=== PATIENT | male | born 1990 | race African-American/Black ===

== ENCOUNTER 2022-07-27 13:58 | Inpatient (IN) | payer OTHER ==
[~2022-07-27] VITALS: Ht 177.8 cm; Wt 129.3 kg
[2022-07-27] MEDS ORDERED: SODIUM CHLORIDE 0.9% 1000ML 1,000 ML IV ONE ×2 (14:30→16:00)
[2022-07-27 14:36] LABS: BASOPHILS # (AUTO) 0.1 (0.0-0.1); BASOPHILS % 0.8 % (0.0-1.0); EOSINOPHILS # (AUTO) 0.1 (0.0-0.4); HEMATOCRIT 46.3 % (38.2-49.6); HEMOGLOBIN 15.9 g/dL (14.0-18.0); MEAN CORPUSCULAR HEMOGLOBIN 27.2 pg (28-32); MEAN CORPUSCULAR HGB CONC 34.3 g/dL (31-35); MEAN CORPUSCULAR VOLUME 79.3 fL (81-99); MONOCYTES # (AUTO) 0.3 (0.2-0.8); MONOCYTES % 5.4 % (4.4-11.3); NEUTROPHILS # (AUTO) 3.6 (2.1-6.9); NEUTROPHILS % 59.6 % (38.7-80.0); PLATELET COUNT 238 x10e3/uL (140-360); RED BLOOD COUNT 5.84 x10e6/uL (4.3-5.7); RED CELL DISTRIBUTION WIDTH 13.6 % (11.7-14.4)
[2022-07-27] MEDS ORDERED: INSULIN REGULAR, HUMAN 100 UNIT/1 ML IV ONE (14:45)
[2022-07-27 14:58] LABS: ALANINE AMINOTRANSFERASE 48 IU/L (0-55); ALBUMIN 4.1 g/dL (3.5-5.0); ALKALINE PHOSPHATASE 115 IU/L (40-150); BLOOD UREA NITROGEN 13 mg/dL (7-26); BUN/CREATININE RATIO 8 (6-25); CALCIUM 9.6 mg/dL (8.4-10.2); CARBON DIOXIDE 19 mmol/L (22-29); CHLORIDE 96 mmol/L (98-107); CREATININE, SERUM 1.58 mg/dL (0.72-1.25); SODIUM 132 mmol/L (136-145)
[2022-07-27 15:00] LABS: GLUCOSE 635 mg/dL (74-118)
[2022-07-27 15:44] LABS: ABG HCO3 27 mmol/L (22-26); ABG PCO2 44 mmHg (35-45); ABG PO2 87 mmHg (80-105); ABG TCO2 29
[2022-07-27] MEDS ORDERED: DEXTROSE 50% SYRINGE 50 ML IV PRN (16:00)
[2022-07-27] MEDS ORDERED: ONDANSETRON HCL INJ 2MG/ML 2ML 2 MG/ML VIAL IV PRN (16:00)
[2022-07-27] MEDS ORDERED: SODIUM CHLORIDE FLUSH 10 ML SYR INJ PRN (16:00)
[2022-07-27] MEDS ORDERED: INSULIN GLARGINE 100 UNITS/ML VIAL SQ ONE (16:00)
[2022-07-27 16:25] LABS: CHOL/HDL RATIO 9.9 (3.9-4.7); CHOLESTEROL 228 MD/DL (0-199); HDL CHOLESTEROL 23 MG/DL (40-60); TRIGLYCERIDES 1127 MG/DL (0-149)
[2022-07-27] MEDS: INSULIN REGULAR, HUMAN 100 UNIT/1 ML SQ SCH (17:06)
[2022-07-27 18:50] LABS: CLARITY,URINE CLEAR (CLEAR); COLOR,URINE YELLOW (YELLOW); KETONES,URINE 1+ (NEGATIVE); LEUKOCYTE ESTERASE ,URINE NEGATIVE (NEGATIVE); NITRITE,URINE NEGATIVE (NEGATIVE); PROTEIN,URINE DIPSTICK NEGATIVE (NEGATIVE); URINE UROBILINOGEN 0.2 mg/dL (0.2 - 1)
[2022-07-27 19:01] LABS: BACTERIA,URINE MODERATE /HPF
[2022-07-27 20:00] VITALS: BP 135/91; PULSE 86; RESP 18; TEMP 97.8; O2SAT 100
[2022-07-27] MEDS ORDERED: METFORMIN HCL500 MG PO (20:35)
[2022-07-27] MEDS ORDERED: ABILIFY5 MG PO (20:35)
[2022-07-27] MEDS ORDERED: ASPIRIN81 MG PO (20:35)
[2022-07-27 21:00] VITALS: BP 135/91; PULSE 86; RESP 18; TEMP 97.8; O2SAT 100
[2022-07-28] VITALS (8 sets, daily range): BP systolic 127–168; BP diastolic 62–100; PULSE 78–103; RESP 18–21; TEMP 97.5–98.1; O2SAT 98–100
[2022-07-28 05:13] LABS: BASOPHILS % 0.7 % (0.0-1.0); EOSINOPHILS # (AUTO) 0.2 (0.0-0.4); EOSINOPHILS % 3.4 % (0.0-6.0); HEMATOCRIT 44.2 % (38.2-49.6); HEMOGLOBIN 14.9 g/dL (14.0-18.0); LYMPHOCYTES # (AUTO) 1.7 (1.0-3.2); LYMPHOCYTES % 30.2 % (18.0-39.1); MEAN CORPUSCULAR HGB CONC 33.7 g/dL (31-35); MEAN CORPUSCULAR VOLUME 80.1 fL (81-99); MONOCYTES # (AUTO) 0.4 (0.2-0.8); MONOCYTES % 6.4 % (4.4-11.3); NEUTROPHILS # (AUTO) 3.3 (2.1-6.9); NEUTROPHILS % 58.9 % (38.7-80.0); PLATELET COUNT 204 x10e3/uL (140-360); RED BLOOD COUNT 5.52 x10e6/uL (4.3-5.7)
[2022-07-28 05:33] LABS: ANION GAP 14.8 mmol/L (8-16); CALCIUM 8.6 mg/dL (8.4-10.2); CREATININE, SERUM 1.06 mg/dL (0.72-1.25); MAGNESIUM 1.9 MG/DL (1.3-2.1); POTASSIUM 3.8 mmol/L (3.5-5.1)
[2022-07-28] MEDS: INSULIN REGULAR, HUMAN 100 UNIT/1 ML SQ SCH ×3 (08:00→17:04)
[2022-07-28] MEDS ORDERED: FENOFIBRATE 145 MG TAB PO SCH (11:15)
[2022-07-28] MEDS: FENOFIBRATE 145 MG TAB PO SCH (12:39)
[2022-07-28] MEDS: INSULIN GLARGINE 100 UNITS/ML VIAL SQ SCH (12:40)
[2022-07-28] MEDS ORDERED: INSULIN GLARGINE 100 UNITS/ML VIAL SQ SCH (21:00)
[2022-07-28] MEDS: ATORVASTATIN 20 MG TAB PO SCH (21:55)
[2022-07-29] VITALS (8 sets, daily range): BP systolic 144–153; BP diastolic 84–107; PULSE 87–100; RESP 17–18; TEMP 97.4–98.1; O2SAT 98–100
[2022-07-29 08:21] LABS: BASOPHILS # (AUTO) 0.1 (0.0-0.1); BASOPHILS % 0.9 % (0.0-1.0); EOSINOPHILS # (AUTO) 0.2 (0.0-0.4); EOSINOPHILS % 3.3 % (0.0-6.0); HEMATOCRIT 48.9 % (38.2-49.6); HEMOGLOBIN 16.3 g/dL (14.0-18.0); LYMPHOCYTES # (AUTO) 1.9 (1.0-3.2); LYMPHOCYTES % 33.1 % (18.0-39.1); MEAN CORPUSCULAR HGB CONC 33.3 g/dL (31-35); MONOCYTES # (AUTO) 0.3 (0.2-0.8); MONOCYTES % 5.8 % (4.4-11.3); NEUTROPHILS # (AUTO) 3.2 (2.1-6.9); NEUTROPHILS % 56.4 % (38.7-80.0); PLATELET COUNT 223 x10e3/uL (140-360); RED BLOOD COUNT 6.04 x10e6/uL (4.3-5.7); RED CELL DISTRIBUTION WIDTH 13.6 % (11.7-14.4)
[2022-07-29 08:37] LABS: ANION GAP 18.9 mmol/L (8-16); CALCIUM 9.1 mg/dL (8.4-10.2); CREATININE, SERUM 1.09 mg/dL (0.72-1.25); PHOSPHORUS 2.9 MG/DL (2.3-4.7); POTASSIUM 3.9 mmol/L (3.5-5.1)
[2022-07-29] MEDS ORDERED: NON-FORMULARY MEDICATION (Aripiprazole (Abilify) 15 MG) PO SCH (09:00)
[2022-07-29] MEDS: ARIPIPRAZOLE 5 MG TABLET PO SCH (09:18)
[2022-07-29] MEDS: FENOFIBRATE 145 MG TAB PO SCH (09:18)
[2022-07-29] MEDS: ASPIRIN 81 MG CHEW TAB PO SCH (09:19)
[2022-07-29] MEDS: INSULIN REGULAR, HUMAN 100 UNIT/1 ML SQ SCH ×3 (09:25→16:51)
[2022-07-29] MEDS: INSULIN GLARGINE 100 UNITS/ML VIAL SQ SCH (09:30)
[2022-07-29] MEDS ORDERED: ONDANSETRON HCL 4 MG ORAL DISINTEGRATING TAB PO PRN (11:45)
[2022-07-29] MEDS ORDERED: INSULIN GLARGINE 100 UNITS/ML VIAL SQ SCH (21:00)
[2022-07-29] MEDS: ATORVASTATIN 20 MG TAB PO SCH (22:22)
[2022-07-30 00:27] VITALS: BP 154/73; PULSE 71; RESP 18; TEMP 97.6; O2SAT 97
[2022-07-30 00:31] VITALS: BP 142/88; PULSE 94; RESP 18; TEMP 97.7; O2SAT 98
[2022-07-30 04:00] VITALS: BP 143/80; PULSE 78; RESP 18; TEMP 98.1; O2SAT 99
[2022-07-30 05:14] LABS: BASOPHILS % 0.5 % (0.0-1.0); EOSINOPHILS # (AUTO) 0.2 (0.0-0.4); EOSINOPHILS % 3.1 % (0.0-6.0); HEMATOCRIT 46.3 % (38.2-49.6); HEMOGLOBIN 15.3 g/dL (14.0-18.0); LYMPHOCYTES # (AUTO) 2.1 (1.0-3.2); LYMPHOCYTES % 36.7 % (18.0-39.1); MEAN CORPUSCULAR HEMOGLOBIN 26.5 pg (28-32); MEAN CORPUSCULAR VOLUME 80.2 fL (81-99); MONOCYTES # (AUTO) 0.4 (0.2-0.8); NEUTROPHILS % 52.2 % (38.7-80.0); PLATELET COUNT 189 x10e3/uL (140-360); RED BLOOD COUNT 5.77 x10e6/uL (4.3-5.7); RED CELL DISTRIBUTION WIDTH 13.3 % (11.7-14.4)
[2022-07-30 05:31] LABS: ANION GAP 14.6 mmol/L (8-16); CALCIUM 8.7 mg/dL (8.4-10.2); CREATININE, SERUM 0.95 mg/dL (0.72-1.25); MAGNESIUM 1.8 MG/DL (1.3-2.1); PHOSPHORUS 3.4 MG/DL (2.3-4.7); POTASSIUM 3.6 mmol/L (3.5-5.1)
[2022-07-30] MEDS ORDERED: NOVOLOG100 UNIT/1 SC (06:11)
[2022-07-30] MEDS ORDERED: LIPITOR20 MG PO (06:11)
[2022-07-30] MEDS ORDERED: FENOFIBRATE145 MG PO (06:11)
[2022-07-30] MEDS ORDERED: LANTUS 3ML100 UNITS/ SC (06:11)
[2022-07-30] MEDS ORDERED: INSULIN GLARGINE 100 UNITS/ML VIAL SQ SCH ×2 (06:45→09:00)
[2022-07-30 08:00] VITALS: BP 143/80; PULSE 78; RESP 18; TEMP 98.1; O2SAT 99
[2022-07-30] MEDS: ARIPIPRAZOLE 5 MG TABLET PO SCH (08:11)
[2022-07-30] MEDS: FENOFIBRATE 145 MG TAB PO SCH (08:11)
[2022-07-30] MEDS: ASPIRIN 81 MG CHEW TAB PO SCH (08:11)
[2022-07-30] MEDS: INSULIN REGULAR, HUMAN 100 UNIT/1 ML SQ SCH (08:15)
[2022-07-30 08:24] VITALS: BP 165/85; PULSE 86; RESP 17; TEMP 97.8; O2SAT 99
== END 2022-07-30 08:45 | disposition home or self-care (01) | DRG 637 ==
LOC: ER 14:00 → ERHOLD 16:01 → INTOOBSV 16:01 → OBSVTOIN 16:01 → MED/SURG 19:32
PROVIDERS: ADMIT Internal Medicine; ATTEND Internal Medicine
DX: E11.65 Type 2 diabetes mellitus with hyperglycemia (principal); E11.00 Type 2 diabetes mellitus with hyperosmolarity without nonketotic hyperglycemic-hyperosmolar coma (NKHHC); N17.9 Acute kidney failure, unspecified; Z68.41 Body mass index [BMI] 40.0-44.9, adult; E66.01 Morbid (severe) obesity due to excess calories; I10 Essential (primary) hypertension; R00.0 Tachycardia, unspecified; J45.909 Unspecified asthma, uncomplicated; E78.5 Hyperlipidemia, unspecified; Z71.3 Dietary counseling and surveillance; Z20.822 Contact with and (suspected) exposure to COVID-19; Z79.84 Long term (current) use of oral hypoglycemic drugs; Z79.82 Long term (current) use of aspirin
CPT/HCPCS: 0223U; 36415; 36600; 71045; 80048; 80053; 80061; 81001; 82805; 82948; 83036; 83735; 84100; 84484; 85025; 93005; 99284; J1815; J7030